=== PATIENT | female | born 2000 | race Caucasian/White ===

== ENCOUNTER 2023-12-15 08:55 | Outpatient (REF) | payer BC, SELFPAY ==
--- NOTE | ~2023-12-15 | US_ITS ---
EXAMINATION: US PELVIS CLINICAL INFORMATION: Nonvisualized IUD strings; the last menstrual period was on 11/24/2023. COMPARISON: None available. TECHNIQUE: Ultrasound of the pelvis is performed using both transabdominal and transvaginal transducers along with Doppler. Transvaginal imaging is performed due to inadequate visualization transabdominally. FINDINGS: Uterus: The uterus is anteverted and measures 7.4 x 3.1 x 3.8 cm. The double wall endometrial thickness is 4 mm. An intrauterine device is seen, properly situated within the endometrial canal. The uterus is smooth in contour and has normal myometrial echogenicity. No visible fibroid. Adnexa: Both ovaries are visualized. There is normal color flow to the adnexa. There is no ovarian torsion. There is no pelvic ascites or fluid collection. Right ovary measures 2.3 x 4.0 x 2.8 cm, volume 13.4 mL. The right ovary contains a 1.7 cm benign, simple follicle, for which no imaging follow-up is recommended. Left ovary measures 1.9 x 2.8 x 1.8 cm, volume 4.9 mL. US/US pelvic and transvaginal IMPRESSION: An intrauterine device is seen, properly situated within the endometrial canal.
== END 2023-12-15 08:56 | disposition home or self-care (01) ==
LOC: HO.UMASIMG 08:55
PROVIDERS: Visit Provider Nurse Practitioner Women's Health
DX: T83.32XA Displacement of intrauterine contraceptive device, initial encounter (principal)
CPT/HCPCS: 76830; 76856